=== PATIENT | female | born 1935 | race Caucasian/White ===

== ENCOUNTER 2016-08-23 12:49 | Emergency (ER) | payer MEDICARE, OTHER ==
[~2016-08-23] VITALS: Ht 152.4 cm; Wt 84.0 kg
[~2016-08-23 12:49] MED LIST: ALPR0.5T6 PO; ARIP5TAB7 PO; ASPI-664 PO; ATOR40TA68 PO; CELE200C PO; CEVI30CA8 PO; DOCU-159 PO; DONE5TAB7 PO; ESOM40CA PO; IBUP800T25 PO; MECL25TA2 PO; METF500T4 PO; NITR-58 PO
[2016-08-23 13:54] VITALS: Ht 152.4 cm; Wt 84.0 kg
[2016-08-23] MEDS ORDERED: KETOROLAC 30 MG INJ IM STA (15:32)
[2016-08-23] MEDS ORDERED: NAPR-260 PO (17:17)
[2016-08-23] MEDS ORDERED: CARI350T PO (17:17)
--- NOTE | 2016-08-23 18:06 | RADRPT ---
PROCEDURE: XR Knee. CLINICAL INDICATION: Pain. Trauma. TECHNIQUE: Three views of the right knee are available for review. COMPARISON: None available FINDINGS: There is no fracture. There is mild medial joint space narrowing with marginal osteophytes. Joint relationships are otherwise maintained. Bone mineralization is within normal limits. Soft tissues are unremarkable. IMPRESSION: 1. Medial joint space degenerative changes. 2. No acute fracture or dislocation is seen. RPTAT: [facility] .Xavi Espitia MD, Date Time Electronically viewed and signed by .Xavi Espitia MD, on 08/23/2016 18:05 .K/
[2016-08-23 18:08] VITALS: BP 181/87; PULSE 60; RESP 18; TEMP 98.1
--- NOTE | 2016-08-23 18:08 | RADRPT ---
PROCEDURE: XR Pelvis. CLINICAL INDICATION: Trauma. Pain. TECHNIQUE: Single AP view of the pelvis. COMPARISON: KUB 02/08/2016 FINDINGS: There is no fracture. Hips are unremarkable. Joint relationships are maintained. Bone mineralizat ion is within normal limits. Degenerative changes lower lumbar spine are present. Vascular phlebo liths are present. Bowel gas pattern is unremarkable. IMPRESSION: 1. No acute fracture or dislocation. 2. Degenerative changes of the lower lumbar spine. RPTAT: [facility] .Xavi Espitia MD, Date Time Electronically viewed and signed by .Xavi Espitia MD, on 08/23/2016 18:07 .K/
--- NOTE | 2016-08-23 21:36 | ERD ---
ER Documentation Chief Complaint Date/Time DATE: 08/23/16 TIME: 21:34 Chief Complaint Pt fell from bed X 3 days, c/o lower back pain radiating to R knee. HPI 81-year-old woman brought in by family members for complaints of low back pain worse on the right compared to the left, she does have a long history of low back pain and sciatica. She rolled off her bed about 3 days ago and since then has had increased pain which radiates down to the right knee, she also complains of right knee pain. She has had no difficulty ambulating, no loss of bowel or bladder control, no fevers or chills, no dysuria, no chest pain or shortness of breath. ROS All systems reviewed and are negative except as per history of present illness. Medications Home Meds Active Scripts Carisoprodol* (Soma*) 350 Mg Tablet, 350 MG PO BID Y for MUSCLE SPASMS, #15 TAB Prov:MANJIT BRANNON MD 08/23/16 Naproxen* (Naprosyn*) 500 Mg Tablet, 500 MG PO BID Y for PAIN AND/OR INFLAMMATION, #30 TAB Prov:MANJIT BRANNON MD 08/23/16 Nitrofurantoin Monohyd Macrocr* (Macrobid*) 100 Mg Capsr, 100 MG PO BID for 7 Days, CAP Prov:ROLLY DE JESUS DO 02/08/16 Meclizine Hcl* (Antivert*) 25 Mg Tablet, 25 MG PO Q6H Y for DIZZINESS, #20 TAB Prov:ROLLY DE JESUS DO 02/08/16 Reported Medications Metformin* (Glucophage*) 500 Mg Tab, 500 MG PO DAILY, #90 TAB 02/08/16 Donepezil* (Donepezil*) 5 Mg Tablet, 5 MG PO DAILY, #30 TAB 02/08/16 Aripiprazole* (Abilify*) 5 Mg Tab, 5 MG PO DAILY, #30 TAB 02/08/16 Celecoxib* (Celebrex*) 200 Mg Capsule, 200 MG PO DAILY, CAP 02/08/16 Esomeprazole Mag Trihydrate (Nexium) 40 Mg Capsule.dr, 40 MG PO DAILY, #30 CAP 02/08/16 Atorvastatin* (Atorvastatin*) 40 Mg Tablet, 40 MG PO QHS, #30 TAB 02/08/16 Ibuprofen* (Ibuprofen*) 800 Mg Tab, 800 MG PO TID Y for PAIN LEVEL 6-10, TAB 02/08/16 Cevimeline Hcl* (Evoxac*) 30 Mg Cap, 30 MG PO TID, CAP 02/08/16 Docusate Sodium* (Docusate Sodium*) 100 Mg Capsule, 100 MG PO BID, #60 CAP 02/08/16 Alprazolam* (Alprazolam*) 0.5 Mg Tablet, 0.5 MG PO Q12 Y for ANXIETY, TAB 02/08/16 Aspirin* (Aspirin* EC) 81 Mg Tablet.dr, 81 MG PO DAILY, TAB 02/08/16 Allergies Allergies: Uncoded Allergies: nkda (Allergy, Mild, 10/03/10) NONE (Allergy, Unknown, 02/08/16) PMhx/Soc Obesity, arthritis, hypertension, diabetes mellitus, chronic back pain, dementia History of Surgery: Yes (KNEE AND SHOULDER SURGERY ) Anesthesia Reaction: No Hx Neurological Disorder: No Hx Respiratory Disorders: No Hx Cardiac Disorders: Yes (HIGH CHOLESTEROL) Hx Psychiatric Problems: Yes (ANXIETY,DEPRESSION) Hx Miscellaneous Medical Probl: Yes (VERTIGO ) Hx Alcohol Use: No Hx Substance Use: No Hx Tobacco Use: No Smoking Status: Never smoker FmHx Family History: No diabetes Physical Exam Vitals Vital Signs Date Time Temp Pulse Resp B/P Pulse Ox O2 Delivery O2 Flow Rate FiO2 08/23/16 18:08 98.1 60 18 181/87 95 Room Air 08/23/16 13:54 98.2 67 20 156/68 95 Physical Exam GENERAL: Well-developed, well-nourished, well-hydrated, in no apparent distress , looks nontoxic in appearance HEENT: Moist mucous membranes, pink conjunctiva, no cervical spine tenderness or step-off deformities, no goiter, no jaundice or icterus, extraocular movements intact without pain. No submandibular induration, and no pharyngeal erythema NEURO: Alert and oriented 3, cranial nerves II through XII intact bilaterally, pupils equal round reactive to light, no focal deficits or facial asymmetry, sensation intact distally Strength 5/5 in upper and lower extremities bilaterally CARDIAC: Regular rate and rhythm, no murmurs rubs or gallops LUNGS: Clear bilaterally no wheezing crackles or stridor ABDOMEN: Soft nontender, no guarding, no rigidity, no rebound, no psoas sign no obturator sign. Normoactive bowel sounds SKIN: Warm and dry to touch, no abrasions, contusions, or hematomas, no lacerations, no ecchymosis, no target lesions, and without ulcers EXTREMITIES: No clubbing cyanosis or edema, calves are bilaterally symmetrical, no Homans sign, no popliteal cord sign. Distal pulses equal and bilateral. Palpable crepitus to both knees with active flexion and extension. PSYCH: Normal affect without agitation or irritability Results 24 hrs Current Medications Medications (Trade) Dose Ordered Sig/Landy Route PRN Reason Start Time Stop Time Status Last Admin Dose Admin Ketorolac Tromethamine (Toradol) 30 mg ONCE STAT IM 08/23/16 15:32 08/23/16 15:34 DC 08/23/16 15:55 Procedures/MDM I administered Toradol 30 mg intramuscular injection with good pain control. X-ray Pelvis 1V Interpreted by me: Bones: No fracture Joints: No dislocation Foreign body: None X-ray right knee 3V Interpreted by me: Bones: No fracture Joints: No dislocation Foreign body: None Differential diagnoses considered, included but not limited to acute coronary syndrome, pulmonary embolism, aortic dissection, abdominal aortic aneurysm, sepsis, stroke, meningitis, encephalitis, pneumonia, appendicitis, cholecystitis , bowel obstruction, pyelonephritis, nephrolithiasis, cystitis, as well as metabolic, hematologic, and electrolyte abnormalities. As well as abscess, cellulitis, fractures, and dislocations. Patient feels much better at this time, and vital signs are normal, symptoms have improved. I did give strict instructions to return to the ED if symptoms continue or worsen, patient will otherwise follow-up with primary care physician. Patient understood instructions and agreed to plan. Departure Diagnosis: Primary Impression: Back pain Back pain location: low back pain Chronicity: acute Back pain laterality: right Sciatica presence: with sciatica Sciatica laterality: sciatica of right side Qualified Code: M54.41 - Acute right-sided low back pain with right -sided sciatica Condition: Good Patient Instructions: Back Pain W/ Sciatica Referrals: CATY NYE MD (PCP) MANJIT BRANNON MD Aug 23, 2016 21:36
== END 2016-08-23 18:11 | disposition home or self-care (01) ==
LOC: FTE 12:49
DX: M54.41 Lumbago with sciatica, right side (principal); E11.9 Type 2 diabetes mellitus without complications; I10 Essential (primary) hypertension; E66.9 Obesity, unspecified; Z68.36 Body mass index [BMI] 36.0-36.9, adult; Z79.82 Long term (current) use of aspirin; Z79.84 Long term (current) use of oral hypoglycemic drugs
CPT/HCPCS: 72170; 73562; 96372; 99284; J1885